=== PATIENT | male | born 1960 | race Caucasian/White ===

== ENCOUNTER 2019-08-07 23:26 | Observation (INO) ==
[2019-08-07] MEDS ORDERED: Ondansetron 4 MG/2 ML VIAL IVP ONE (23:28)
[2019-08-07] MEDS ORDERED: 0.9 % Sodium Chloride 500 ML IVC ONE (23:28)
[2019-08-07] MEDS ORDERED: Aspirin 81 MG TAB.CHEW PO ONE (23:28)
[2019-08-07 23:57] LABS: Basophils # 0.1 K/mcL (0.0-0.2); Basophils % 0.6 %; Eosinophils # 0.1 K/mcL (0.0-0.6); Eosinophils % 1.1 %; Hematocrit 48.8 % (37.5-50.1); Hemoglobin 16.5 g/dL (12.9-16.9); Immature Granulocytes % 0.3 % (0-4); Lymphocytes # 2.2 K/mcL (0.6-4.6); Lymphocytes % 22.1 %; Mean Corpuscular HGB Conc 33.8 g/dL (31.6-35.5); Mean Corpuscular Hemoglobin 32.5 pg (28.0-33.3); Mean Corpuscular Volume 96.3 fL (83.0-100.0); Mean Platelet Volume 9.5 fL (9.4-12.4); Monocytes # 0.6 K/mcL (0.0-1.3); Monocytes % 5.7 %; Neutrophils # 7.1 K/mcL (1.6-8.9); Platelet Count 191 K/mcL (140-400); Red Blood Count 5.07 M/mcL (4.19-5.50); Red Cell Distribution Width 12.7 % (11.5-14.5); Segmented Neutrophils % 70.2 %; White Blood Count 10.1 K/mcL (4.3-11.1)
[2019-08-08 00:06] LABS: Prothrombin Time 11.9 Seconds (9.4-12.1)
[2019-08-08 00:09] LABS: Activated Partial Thrombo Time 31.2 Seconds (26.0-36.0)
[2019-08-08] MEDS: Nitroglycerin 0.4 MG TAB.SUBL SL SCH ×3 (00:12→04:03)
[2019-08-08 00:13] LABS: BUN/Creatinine Ratio 15 (6-26); Blood Urea Nitrogen 12 mg/dL (8-23); Calcium 9.5 mg/dL (8.6-10.3); Carbon Dioxide 32 mEq/L (23-29); Chloride 101 mEq/L (98-107); Glucose 111 mg/dL (70-105); Osmolality,Calculated 286 (280-300); Potassium 3.5 mEq/L (3.5-5.1); Sodium 138 mEq/L (136-145); eGFR For African Americans > 60 (> 60); eGFR For Non-African Americans > 60 (> 60)
[2019-08-08 00:14] LABS: Albumin 4.3 g/dL (3.5-5.7); Albumin/Globulin Ratio 1.2 (1.1-2.2); Bilirubin,Indirect 0.4 mg/dL (0.0-1.0); Bilirubin,Total 0.4 mg/dL (0.3-1.0); Globulin 3.5 g/dL (2.4-3.5); Total Protein 7.8 g/dL (6.4-8.9)
[2019-08-08 00:17] LABS: Troponin I < 0.03 ng/mL (< 0.04)
[2019-08-08] MEDS ORDERED: Nitroglycerin 1 INCH/GM PACKET TP ONE (00:21)
[2019-08-08] MEDS ORDERED: Naloxone 0.4 MG/ML INJ IVP PRN (01:35)
[2019-08-08] MEDS ORDERED: Nitroglycerin 0.4 MG TAB.SUBL SL PRN (01:35)
[2019-08-08] MEDS ORDERED: Ondansetron ODT 4 MG TAB.RAPDIS SL PRN (01:35)
[2019-08-08] MEDS ORDERED: MOM Conc 10 ML UD.LIQ PO PRN (01:35)
[2019-08-08] MEDS ORDERED: GI Cocktail 40 ML EACH PO ONE (01:39)
[2019-08-08] MEDS: 0.9 % Sodium Chloride 1,000 ML IVC SCH (02:14)
[2019-08-08] MEDS: Mag Hydrox/Al Hydrox/Simeth 30 ML UDC PO PRN ×3 (04:33→20:42)
[2019-08-08] MEDS ORDERED: Aspirin Enteric Coated 325 MG Tablet PO SCH (09:00)
[2019-08-08 09:19] LABS: Chol/HDL Ratio 3.6 (0-4.9)
[2019-08-08] MEDS: Pantoprazole 40 MG VIAL IVP SCH (16:49)
[2019-08-09] MEDS: 0.9 % Sodium Chloride 1,000 ML IVC SCH (05:42)
[2019-08-09] MEDS: Pantoprazole 40 MG VIAL IVP SCH (05:53)
[2019-08-09 07:55] LABS: Hematocrit 43.4 % (37.5-50.1); Hemoglobin 14.2 g/dL (12.9-16.9); Mean Corpuscular HGB Conc 32.7 g/dL (31.6-35.5); Mean Corpuscular Volume 97.7 fL (83.0-100.0); Mean Platelet Volume 9.8 fL (9.4-12.4); Platelet Count 147 K/mcL (140-400); Red Blood Count 4.44 M/mcL (4.19-5.50); Red Cell Distribution Width 12.7 % (11.5-14.5); White Blood Count 7.3 K/mcL (4.3-11.1)
[2019-08-09 08:12] LABS: BUN/Creatinine Ratio 10 (6-26); Blood Urea Nitrogen 8 mg/dL (8-23); Calcium 8.7 mg/dL (8.6-10.3); Carbon Dioxide 30 mEq/L (23-29); Chloride 106 mEq/L (98-107); Glucose 88 mg/dL (70-105); Osmolality,Calculated 288 (280-300); Potassium 3.9 mEq/L (3.5-5.1); Sodium 140 mEq/L (136-145); eGFR For African Americans > 60 (> 60); eGFR For Non-African Americans > 60 (> 60)
[2019-08-09] MEDS ORDERED: Aspirin Enteric Coated 81 MG Tablet PO SCH (09:00)
[2019-08-09 14:20] VITALS: BP 133/80
== END 2019-08-09 17:50 | disposition home or self-care (01) ==
LOC: INPPIK 23:26 → EMEROOPIK 23:26 → INPPIK 08-08 01:25
PROVIDERS: ADMIT Family Medicine; ATTEND Family Medicine